=== PATIENT | female | born 1955 | race American Indian/Alaskan Native ===

== ENCOUNTER 2017-09-24 07:00 | Outpatient (CLI) | payer OTHER ==
--- NOTE | 2017-09-24 08:22 | Mammography Report ---
BILATERAL MAMMOGRAM with CAD: HISTORY: The patient reports no complaints or symptoms. No prior studies. FINDINGS: The breast tissue is heterogeneously dense, which could obscure detection of small masses (approximately 50%-75% glandular). No mass, distortion, suspicious calcification, or skin change is seen. IMPRESSION: Negative mammogram. There is no mammographic evidence of malignancy. RECOMMENDATION: Follow-up per ACS guidelines. BI-RADS CATEGORY: 1 = Negative ACR BI-RADS MAMMOGRAPHIC CODES: 0 = Needs additional imaging evaluation; 1 = Negative; 2 = Benign; 3 = Probably benign; 4 = Suspicious; 5 = Malignant; 6 = Known biopsy-proven malignancy COMMENT: 1. Dense breast tissue, i.e., adenosis, fibrocystic changes, etc., may obscure an underlying neoplasm. 2. Approximately 10% of cancers are not detected with mammography. 3. A negative mammography report should not delay biopsy if a clinically suspicious mass is present. COMMENT: Patient follow-up letters are generated in [place].
[2017-09-24 09:31] LABS: Blood Urea Nitrogen 12 mg/dL (7-17)
--- NOTE | 2017-09-24 11:22 | Cat Scan Report ---
CT ABDOMEN PELVIS WITH CONTRAST: HISTORY: Abnormal liver function studies. COMPARISON: none. TECHNIQUE: Helical CT in 1.25mm intervals following IV contrast. Sagittal and coronal reconstructions. FINDINGS: Lung bases: Normal. Liver: No evidence for parenchymal disease, surface nodularity or mass. The hepatic veins and IVC are patent. The portal venous system is patent. Biliary system: Normal. Pancreas: Normal. Spleen: Normal. Kidneys/ureters/bladder: Both kidneys are normal size, contour and position. A 2.7 cm simple cyst is noted in the mid right kidney. The ureters are normal course and caliber. Normal bladder. Adrenal glands: Normal. Aorta: Normal. Intestines: There are several diverticula in the distal colon. No evidence for obstruction, mass or acute inflammation. Appendix: Normal. Pelvic viscera: Hysterectomy. Ascites: None. Adenopathy: None. Musculoskeletal: Intact. IMPRESSION: Unremarkable liver. 2.7 cm right renal cyst. Diverticulosis of the distal colon.
== END 2017-09-24 07:01 | disposition home or self-care (01) ==
LOC: MAMMO 07:00
PROVIDERS: ATTEND Internal Medicine
DX: N28.1 Cyst of kidney, acquired (principal); K57.30 Diverticulosis of large intestine without perforation or abscess without bleeding; R92.8 Other abnormal and inconclusive findings on diagnostic imaging of breast; R94.5 Abnormal results of liver function studies; Z90.710 Acquired absence of both cervix and uterus
CPT/HCPCS: 36415; 74160; 77066; 82565; 84520; Q9967

== ENCOUNTER 2019-05-18 09:40 | Outpatient (CLI) | payer OTHER ==
--- NOTE | 2019-05-18 14:31 | Nuclear Medicine Report ---
NUCLEAR MEDICINE BONE SCAN, WHOLE BODY INDICATION: R74.8: Abnormal levels of other serum enzymes.. Overall bone pain. Elevated alkaline phos phatase levels. No history of cancer. TECHNIQUE: 25 mCi of Tc-99m MDP were injected IV. Whole body images were obtained. COMPARISON: No relevant prior imaging study available. FINDINGS: Skeletal Structures: Fairly symmetric, mild degenerative changes in the shoulders and feet. . Skeletal Lesions: None. Soft Tissues: Normal. Kidneys: Normal, symmetric activity. Additional Findings: None. IMPRESSION: No significant scintigraphic abnormality. Signer Name: Rajat Aguilera Jr, MD Signed: 05/18/2019 2:26 PM Workstation Name: [id number]
== END 2019-05-18 09:41 | disposition home or self-care (01) ==
LOC: NM 09:40
PROVIDERS: ATTEND Internal Medicine
DX: R74.8 Abnormal levels of other serum enzymes (principal); I10 Essential (primary) hypertension; K21.9 Gastro-esophageal reflux disease without esophagitis
CPT/HCPCS: 78306; A9503

== ENCOUNTER 2021-07-24 08:19 | Emergency (ER) | payer OTHER ==
[2021-07-24 08:25] VITALS: BP 119/84
[2021-07-24] MEDS ORDERED: SODIUM CHLORIDE 0.9% 1000 ML 1,000 ML IV ONE (09:23)
[2021-07-24] MEDS ORDERED: MORPHINE 4 MG/1 ML INJ IV ONE (09:23)
[2021-07-24] MEDS ORDERED: ONDANSETRON 4 MG/2 ML INJ IV ONE (09:23)
--- NOTE | 2021-07-24 09:24 | Emergency Department Report ---
ED Abdominal Pain HPI - General Chief Complaint: Abdominal Pain Stated Complaint: left flank pain PUI?: No Time Seen by Provider: 07/24/21 08:53 Source: patient Mode of arrival: Ambulatory Limitations: No Limitations - History of Present Illness Initial Comments: 65-year-old female with a past medical history of hypertension, asthma and allergies presents to the ER today with complaints of significant left flank pain. Patient states that she has been having this pain for 2 weeks. She describes as a sharp pain which sometimes radiates into her left abdomen.. She states that the pain is worse when she stands, and she states that it is severe to the point where she is having difficulty sleeping from the pain. She states that she has been seen her primary care doctor for this pain. She has gone to her PCP twice, the first time they felt was related to muscle spasms and she was prescribed a muscle relaxer which she has been taking but it has not been helping. She states that the second time, they checked her urine, started on Macrodantin, she is not exactly sure what she is on the antibiotic for but she states that her urine did contain blood. She was given an outpatient order for renal ultrasound, pelvic ultrasound and abdominal ultrasounds which she has not done yet. She denies any obvious hematuria, dysuria, urinary frequency or urgency. She reports nausea but no vomiting. She states that she feels like she is losing weight. She reports no diarrhea or constipation. She denies any fever or chills. She denies any chest pain or shortness of breath. She denies bowel or bladder incontinence, LE weakness, saddle anesthesia. She denies ETOH abuse or illicit drug use. She denies similar pain in the past. MD Complaint: flank pain -: week(s) (2) - Related Data Home Medications Medication Instructions Recorded Confirmed Last Taken Cholecalciferol (Vitamin D3) 2,000 units PO QDAY 08/06/13 08/06/13 08/06/13 08:0 0 [Vitamin D] Esomeprazole Magnesium [Nexium] 40 mg PO QDAY PRN 08/06/13 08/06/13 07/30/13 10 :00 Losartan [Cozaar] 25 mg PO QDAY 08/06/13 08/06/13 08/06/13 08:00 Montelukast [Singulair] 10 mg PO QDAY 1208/06/13 08/06/13 08:00 Previous Rx's Medication Instructions Recorded Last Taken Type Albuterol Mdi (or & Nicu Only) 2 puff IH QID PRN #1 inhalation 08/07/13 Unknown Rx [ProAir HFA Inhaler] DOXYCYCLINE Hyclate [Vibramycin 100 mg PO BID #7 capsule 08/07/13 Unknown Rx CAP] Prednisone [predniSONE 10 mg 10 mg PO QDAY #5 tab.ds.pk 08/07/13 Unknown Rx (6-Day Pack, 21 Tabs)] Ibuprofen [Motrin] 800 mg PO Q8H PRN #20 tablet 09/14/14 Unknown Rx HYDROcodone/APAP 5-325 [[place] 1 each PO Q4HR PRN #12 tablet 07/24/21 Unknown Rx 5/325] Ondansetron [Zofran Odt] 4 mg PO Q8HR #15 tab.rapdis 07/24/21 Unknown Rx Allergies Allergy/AdvReac Type Severity Reaction Status Date / Time levofloxacin [From Levaquin] AdvReac Itching Verified 08/06/13 13:14 ED Review of Systems ROS: Stated complaint: left flank pain Other details as noted in HPI Comment: All other systems reviewed and negative Constitutional: denies: chills, fever Respiratory: denies: cough, shortness of breath, SOB with exertion, SOB at rest, wheezing Cardiovascular: denies: chest pain, palpitations Gastrointestinal: abdominal pain, nausea. denies: vomiting, diarrhea, constipation, hematemesis, melena, hematochezia Genitourinary: other (Left flank pain). denies: urgency, dysuria, frequency, hematuria, discharge, abnormal menses, dyspareunia Musculoskeletal: back pain Skin: denies: rash, lesions, change in color, change in hair/nails, pruritus Neurological: denies: headache, weakness, numbness, paresthesias, confusion, abnormal gait, vertigo Psychiatric: denies: anxiety, depression, auditory hallucinations, visual hallu cinations, homicidal thoughts Hematological/Lymphatic: denies: easy bleeding, easy bruising, swollen glands ED Past Medical Hx - Past Medical History Hx Hypertension: Yes Hx GERD: Yes Additional medical history: sinus - Surgical History Additional Surgical History: hysterectomy. right ear surgery. sinus surgery - Social History Smoking Status: Never Smoker Substance Use Type: None - Medications Home Medications: Home Medications Medication Instructions Recorded Confirmed Last Taken Type Cholecalciferol (Vitamin D3) 2,000 units PO QDAY 08/06/13 08/06/13 08/06/13 08:00 History [Vitamin D] Esomeprazole Magnesium [Nexium] 40 mg PO QDAY PRN 08/06/13 08/06/13 07/30/13 10:00 History Losartan [Cozaar] 25 mg PO QDAY 08/06/13 08/06/13 08/06/13 08:00 History Montelukast [Singulair] 10 mg PO QDAY 08/06/13 08/06/13 08/06/13 08:00 History Albuterol Mdi (or & Nicu Only) 2 puff IH QID PRN #1 inhalation 08/07/13 Unknown Rx [ProAir HFA Inhaler] DOXYCYCLINE Hyclate [Vibramycin 100 mg PO BID #7 capsule 08/07/13 Unknown Rx CAP] Prednisone [predniSONE 10 mg 10 mg PO QDAY #5 tab.ds.pk 08/07/13 Unknown Rx (6-Day Pack, 21 Tabs)] Ibuprofen [Motrin] 800 mg PO Q8H PRN #20 tablet 09/14/14 Unknown Rx HYDROcodone/APAP 5-325 [[place] 1 each PO Q4HR PRN #12 tablet 07/24/21 Unknown Rx 5/325] Ondansetron [Zofran Odt] 4 mg PO Q8HR #15 tab.rapdis 07/24/21 Unknown Rx ED Physical Exam - General Limitations: No Limitations General appearance: alert, in distress (from pain ) - Head Head exam: Present: atraumatic, normocephalic, normal inspection - Eye Eye exam: Present: normal appearance, PERRL, EOMI Pupils: Present: normal accommodation - ENT ENT exam: Present: mucous membranes dry - Neck Neck exam: Present: normal inspection, full ROM - Respiratory Respiratory exam: Present: normal lung sounds bilaterally. Absent: respiratory distress, wheezes, rales, rhonchi - Cardiovascular Cardiovascular Exam: Present: regular rate, normal rhythm - GI/Abdominal GI/Abdominal exam: Present: soft, tenderness (mild LUQ ttp ). Absent: distended, guarding, rebound - Back Exam Back exam: Present: full ROM. Absent: CVA tenderness (R), CVA tenderness (L), muscle spasm, paraspinal tenderness, vertebral tenderness - Neurological Exam Neurological exam: Present: alert, oriented X3, CN II-XII intact, normal gait - Psychiatric Psychiatric exam: Present: normal affect, normal mood - Skin Skin exam: Present: intact ED Course Vital Signs 07/24/21 07/24/21 08:24 13:11 Temperature 98.0 F Pulse Rate 102 H 88 Respiratory 16 Rate Blood Pressure 119/84 [Right] O2 Sat by Pulse 99 97 Oximetry ED Medical Decision Making - Lab Data Result diagrams: 07/24/21 09:43 07/24/21 09:43 - Radiology Data Radiology results: report reviewed Patient: STEWART MARS MR#: [id number] : 1955 Acct:[id number] Age/Sex: 65 / F ADM Date: 07/24/21 Loc: ED Attending Dr: Ordering Physician: JJ WEINBERG Date of Service: 07/24/21 Procedure(s): CT abdomen pelvis w con Accession Number(s): [id number] cc: JJ WEINBERG CT ABDOMEN AND PELVIS WITH CONTRAST INDICATION: severe left flank pain OMNI 300 100 ML. TECHNIQUE: Axial CT images were obtained through the abdomen and pelvis after 100 cc IV contrast. All CT scans at this location are performed using CT dose reduction for ALARA by means of automated exposure control. COMPARISON: CT abdomen pelvis 09/24/2017 FINDINGS: LOWER CHEST: Moderate confluence pulmonary emphysema. LIVER: No significant abnormality. GALLBLADDER: No significant abnormality. BILE DUCTS: No significant abnormality. PANCREAS: No significant abnormality. SPLEEN: No significant abnormality. ADRENALS: No significant abnormality. RIGHT KIDNEY and URETER: Simple 3 cm right renal cyst. LEFT KIDNEY and URETER: No significant abnormality. STOMACH and SMALL BOWEL: No significant abnormality. COLON: Moderate left colonic diverticulosis without diverticulitis. APPENDIX: Normal PERITONEUM: No free fluid. No free air. No fluid collection. LYMPH NODES: No significant adenopathy. AORTA and ARTERIES: No significant abnormality. IVC and VEINS: No significant abnormality. URINARY BLADDER: No significant abnormality. REPRODUCTIVE ORGANS: Surgically absent ADDITIONAL FINDINGS: None. SKELETAL SYSTEM: No significant abnormality. IMPRESSION: 1. Moderate colonic diverticulosis without diverticulitis. Signer Name: Efrain Weinberg MD Signed: 07/24/2021 11:29 AM Workstation Name: [id number] Transcribed By: TL Dictated By: Efrain Weinberg MD Electronically Authenticated By: Efrain Weinberg MD Signed Date/Time: 07/24/211128 DD/ 24 TD/TT: - Medical Decision Making All work-up reviewed --CT scan shows diverticulosis but no signs of diverticulitis otherwise unremarkable. Labs show that she has an alk phos of 504, and AST of 42 otherwise CBC and CMP unremarkable. Exact cause of her e levated alk phos and AST at this time unclear. UA, questionable UTI, reflex culture ordered. Patient currently resting comfortably, much improved compared to when I first saw her. Is currently not toxic or ill-appearing. She is neurologically intact. She has a normal gait. Her vital signs are stable. Discussed all results with patient. She states that she had a colonoscopy about 2 years ago. Recommend that she follows up with her PCP and her GI specialist for continued monitoring of her elevated liver enzymes. She states that she thinks she may have an appointment with a back specialist tomorrow, which I recommended that she keeps as her pain could also be related to her spine. She is already on Macrobid for UTI which I recommend that she continues until the culture results. I do not suspect that her pain is related to STEMI, unstable angina/PE, aortic dissection, cauda equina syndrome or sepsis at this time. There is no indication for any additional testing or admission to the hospital. Patient expressed understanding of all instructions and agreed with plan. Patient stable at time of discharge. Critical care attestation.: If time is entered above; I have spent that time in minutes in the direct care of this critically ill patient, excluding procedure time. ED Disposition Clinical Impression: Left flank pain, Diverticulosis, UTI (urinary tract infection), Elevated LFTs Disposition: HOME / SELF CARE / HOMELESS Is pt being admited?: No Does the pt Need Aspirin: No Condition: Stable Instructions: Urinary Tract Infection, Adult, Flank Pain, Adult, [id number], Abdominal Pain (ED) Additional Instructions: Recommend that you continue and finish your Macrobid which was prescribed to you for UTI. Take the hydrocodone as prescribed for pain. Take the Zofran as prescribed for nausea and vomiting. Some of your liver enzymes were elevated here during stay and so I recommend following up with PCP and or GI specialist. I recommend that you try to make an appointment for follow-up with your primary care doctor either this week or next week. If your left flank pain continues it could be related to your spine and you may need referral to Ortho. Return to the ER if your symptoms changes or worsens in any way. Prescriptions: HYDROcodone/APAP 5-325 [[place] 5/325] 1 each PO Q4HR PRN #12 tablet PRN Reason: Pain Ondansetron [Zofran Odt] 4 mg PO Q8HR #15 tab.rapdis Referrals: JUAN PHILLIPS MD [Primary Care Provider] - 3-5 Days [facility] [Provider Group] - 3-5 Days Forms: Work/School Release Form(ED) Time of Disposition: 12:31
[2021-07-24 10:25] LABS: Basophils # (Auto) 0.1 K/mm3 (0.0-0.1); Basophils % (Auto) 1.1 % (0.0-1.8); Eosinophils # (Auto) 0.8 K/mm3 (0.0-0.4); Eosinophils % (Auto) 11.4 % (0.0-4.3); Hematocrit 38.9 % (30.3-42.9); Hemoglobin 12.5 gm/dl (10.1-14.3); Lymphocytes # (Auto) 2.6 K/mm3 (1.2-5.4); Lymphocytes % (Auto) 37.8 % (13.4-35.0); Mean Corpuscular HGB Conc 32 % (30-34); Mean Corpuscular Volume 82 fl (79-97); Platelet Count 308 K/mm3 (140-440); Red Blood Count 4.74 M/mm3 (3.65-5.03); Red Cell Distribution Width 14.5 % (13.2-15.2)
[2021-07-24 10:36] LABS: Alanine Aminotransferase 55 units/L (7-56); Albumin 4.1 g/dL (3.9-5); Bilirubin,Direct 0.3 mg/dL (0-0.2); Blood Urea Nitrogen 14 mg/dL (7-17); Calcium 9.3 mg/dL (8.4-10.2); Hemolysis Index 2
[2021-07-24 10:37] LABS: BUN/Creatinine Ratio 28
--- NOTE | 2021-07-24 11:34 | Cat Scan Report ---
CT ABDOMEN AND PELVIS WITH CONTRAST INDICATION: severe left flank pain OMNI 300 100 ML. TECHNIQUE: Axial CT images were obtained through the abdomen and pelvis after 100 cc IV contrast. All CT scans at this location are performed using CT dose reduction for ALARA by means of automated exposure contr ol. COMPARISON: CT abdomen pelvis 09/24/2017 FINDINGS: LOWER CHEST: Moderate confluence pulmonary emphysema. LIVER: No significant abnormality. GALLBLADDER: No significant abnormality. BILE DUCTS: No significant abnormality. PANCREAS: No significant abnormality. SPLEEN: No significant abnormality. ADRENALS: No significant abnormality. RIGHT KIDNEY and URETER: Simple 3 cm right renal cyst. LEFT KIDNEY and URETER: No significant abnormality. STOMACH and SMALL BOWEL: No significant abnormality. COLON: Moderate left colonic diverticulosis without diverticulitis. APPENDIX: Normal PERITONEUM: No free fluid. No free air. No fluid collection. LYMPH NODES: No significant adenopathy. AORTA and ARTERIES: No significant abnormality. IVC and VEINS: No significant abnormality. URINARY BLADDER: No significant abnormality. REPRODUCTIVE ORGANS: Surgically absent ADDITIONAL FINDINGS: None. SKELETAL SYSTEM: No significant abnormality. IMPRESSION: 1. Moderate colonic diverticulosis without diverticulitis. Signer Name: Efrain Weinberg MD Signed: 07/24/2021 11:29 AM Workstation Name: [id number]
[2021-07-24 12:19] LABS: Bilirubin,Urine NEG (Negative); Blood,Urine NEG (Negative); Color,Urine Amber (Yellow); Mucus,Urine 1+ /HPF
== END 2021-07-24 13:12 | disposition home or self-care (01) ==
LOC: ED 08:19
DX: K57.90 Diverticulosis of intestine, part unspecified, without perforation or abscess without bleeding (principal); N39.0 Urinary tract infection, site not specified; R79.89 Other specified abnormal findings of blood chemistry
CPT/HCPCS: 36415; 74177; 80048; 80076; 81001; 83690; 85025; 87086; 96361; 96374; 96375; 99284; J2270; J2405; J7030; Q9967; Q0162